=== PATIENT | female | born 1950 | race Caucasian/White ===

== ENCOUNTER 2024-10-11 06:09 | Day surgery (SDC) | payer OTHER ==
[2024-10-06 12:25] VITALS: BMI 34.3
[2024-10-11] MEDS ORDERED: ISOSULFAN BLUE 50 MG/5 ML VIAL SQ ONE (11:36)
[2024-10-11] MEDS ORDERED: LIDOCAINE HCL/PF 2% SDV 5ML VIAL ONE (12:01)
[2024-10-11] MEDS ORDERED: MIDAZOLAM HCL 2 MG/2 ML SINGLE DOSE VIAL ONE (12:02)
[2024-10-11] MEDS ORDERED: PROPOFOL 20 ML ONE (12:02)
[2024-10-11] MEDS ORDERED: DEXAMETHASONE SOD PHOSPHATE 4 MG/1 ML VIAL ONE (13:07)
[2024-10-11] MEDS: LIDOCAINE HCL 1%, 10 MG/ML (20ML VIAL) INF ONE (13:28)
[2024-10-11] MEDS ORDERED: KETOROLAC TROMETHAMINE 30 MG/1 ML VIAL ONE (14:04)
[2024-10-11] MEDS ORDERED: ONDANSETRON 4 MG/2 ML VIAL ONE (14:04)
[2024-10-11] MEDS ORDERED: PROMETHAZINE HCL 25 MG/1 ML VIAL IVPB PRN (14:45)
[2024-10-11] MEDS ORDERED: ONDANSETRON 4 MG/2 ML VIAL IVPUSH PRN (14:45)
[2024-10-11] MEDS: LACTATED RINGERS SOLUTION 1,000 ML IV SCH (14:57)
[2024-10-11] MEDS: ACETAMINOPHEN 1000 MG/100 ML BAG IVPB ONE (15:01)
[2024-10-11] MEDS: ACETAMINOPHEN 325 MG TABLET (FP) PO SCH (15:19)
[2024-10-11 19:33] VITALS: RESP 18
[2024-10-11] MEDS: ATORVASTATIN CA 40 MG TABLET (FP) PO SCH (21:45)
[2024-10-11] MEDS: MELATONIN 5 MG TABLETS PO PRN (22:27)
[2024-10-12] MEDS: metFORMIN HCL 500 MG TABLET (FP) PO SCH (06:10)
[2024-10-12] MEDS: BACLOFEN 10 MG TABLET (FP) PO SCH (10:21)
[2024-10-12] MEDS: CARVEDILOL 6.25 MG TABLET (FP) PO SCH (10:21)
[2024-10-12] MEDS: SACUBITRIL/VALSARTAN 24 MG-26 MG TABLET PO SCH (10:21)
[2024-10-12 11:34] VITALS: BP 130/77; PULSE 72; TEMP 98.1
== END 2024-10-12 12:46 | disposition home or self-care (01) ==
LOC: JASUSAT 06:09 → JASU-SURG 06:09 → J8W 18:13 → JASUSAT 10-12 12:46
PROVIDERS: ATTEND Surgery
PROC: 0HBU0ZZ Excision of Left Breast, Open Approach (ICD-10-PCS; principal; 2024-10-11 13:00)
DX: D05.12 Intraductal carcinoma in situ of left breast (principal)
CPT/HCPCS: 19281; 76098-TC-FY; 78195-TC; 82962; 88307-TC; 88341-TC; 88342-TC; 94760; A4648; A9541; J0475